=== PATIENT | male | born 1950 | race Caucasian/White ===

== ENCOUNTER 2018-02-08 20:30 | Outpatient (CLI) | payer MEDICARE | END 2018-02-08 20:31 | disposition home or self-care (01) | LOC: SLEEPLAB 20:30 | PROVIDERS: ATTEND Internal Medicine Critical Care Medicine | DX: G47.33 Obstructive sleep apnea (adult) (pediatric) (principal); E66.9 Obesity, unspecified; Z68.31 Body mass index [BMI] 31.0-31.9, adult | CPT/HCPCS: 95811 ==

== ENCOUNTER 2018-03-30 19:08 | Emergency (ER) | payer MEDICARE ==
[2018-03-30 20:00] LABS: #Basophils 0.1 thou/uL (0.0-0.2); #Eosinphils 0.4 thou/uL (0.0-0.7); #Lymphocytes 1.9 thou/uL (1.20-3.40); #Monocytes 0.8 thou/uL (0.11-0.59); #Neutrophils 4.2 thou/uL (1.40-6.50); %Basophils 0.9 % (0.0-1.0); %Monocytes 10.3 % (0.0-10.0); %Neutrophils 57.8 % (42.0-75.0); Hemoglobin 14.9 g/dL (14.0-18.0); Mean Corpuscular HGB CONC 36.1 g/dL (32.0-36.0); Mean Corpuscular Hemoglobin 32.4 pg (27.0-31.0); Mean Corpuscular Volume 89.6 fL (78.0-98.0); Platelet Count 150 thou/uL (130-400); RBC Distribution Width 10.8 % (11.5-14.5); Red Blood Cell (RBC) Count 4.61 mill/uL (4.70-6.10); White Blood Cell (WBC) Count 7.2 thou/uL (4.8-10.8)
[2018-03-30 20:07] LABS: Anion Gap 15 mmol/L (10-20); BUN (Urea Nitrogen) 20 mg/dL (8.4-25.7); Calc. Creatinine Clearance 0 mL/min (70-130); Calcium 9.7 mg/dL (7.8-10.44); Carbon Dioxide 24 mmol/L (23-31); Chloride 107 mmol/L (98-107); Estimated GFR-MDRD 56; Glucose 82 mg/dL (80-115); Potassium 4.5 mmol/L (3.5-5.1); Sodium 141 mmol/L (136-145)
[2018-03-30 20:10] LABS: CKMB 6.5 ng/mL (0-6.6); Troponin I Less than 0.010 ng/mL (< 0.028)
--- NOTE | 2018-03-30 20:19 | CT ---
CT OF THE BRAIN WITHOUT CONTRAST: 03/30/18 COMPARISON: None. HISTORY: Left sided facial swelling that began a few hours prior to arrival. Intermittent vertigo. TECHNIQUE: Multiple contiguous axial images were obtained in a CT of the brain without contrast. FINDINGS: The brain is normal in morphology and attenuation without focal lesions or confluent areas of infarct ion. There is no evidence of hydrocephalus, intracranial hemorrhage, or extra-axial fluid collections . The calvarium and overlying soft tissues are unremarkable. The visualized paranasal sinuses and masto id air cells are well aerated. IMPRESSION: No evidence of acute intracranial abnormality. POS: [facility]
--- NOTE | 2018-03-30 20:22 | CT ---
CT OF THE FACE WITHOUT CONTRAST: 03/30/18 COMPARISON: None. Jaw pain that began around lunch. Intermittent vertigo. Right sided facial swelling. TECHNIQUE: Multiple contiguous axial images were obtained in a CT of the face without contrast. Sagittal and cor onal reformats were performed. FINDINGS: A small mucous retention cyst is seen in the right maxillary sinus. The other paranasal sinuses are w ell aerated. The globes and retrobulbar soft tissues are unremarkable. Dental amalgam produces streak artifact sli ghtly limiting evaluation. No focal fluid collection is seen in the face. No definite perihardware wendi cency is seen surrounding any of the teeth. Temporomandibular joints are symmetric. No facial fractur e is seen. IMPRESSION: No significant facial abnormality. POS: [facility]
== END 2018-03-30 20:46 | disposition home or self-care (01) ==
LOC: SCSER 19:08
DX: R42 Dizziness and giddiness (principal); R22.0 Localized swelling, mass and lump, head; G47.33 Obstructive sleep apnea (adult) (pediatric); E78.5 Hyperlipidemia, unspecified; F32.9 Major depressive disorder, single episode, unspecified; G89.29 Other chronic pain; Z79.899 Other long term (current) drug therapy; Z79.82 Long term (current) use of aspirin
CPT/HCPCS: 70450; 70486; 80048; 82553; 84484; 85025; 93005

== ENCOUNTER 2019-01-23 09:26 | Outpatient (CLI) | payer MEDICARE | END 2019-01-23 09:27 | disposition home or self-care (01) | LOC: EKG 09:26 | PROVIDERS: ATTEND Family Medicine | DX: Z01.810 Encounter for preprocedural cardiovascular examination (principal) | CPT/HCPCS: 93005; 93010 ==

== ENCOUNTER 2019-02-13 00:08 | Outpatient (CLI) | payer MEDICARE ==
[2019-02-13 11:22] LABS: Hemoglobin 15.3 g/dL (14.0-18.0); Mean Corpuscular HGB CONC 34.2 g/dL (32.0-36.0); Mean Corpuscular Hemoglobin 33.5 pg (27.0-31.0); Mean Platelet Volume 8.2 fL (7.4-10.4); Platelet Count 170 thou/uL (130-400); RBC Distribution Width 12.2 % (11.5-14.5); Red Blood Cell (RBC) Count 4.57 mill/uL (4.70-6.10); White Blood Cell (WBC) Count 6.8 thou/uL (4.8-10.8)
[2019-02-13 11:32] LABS: Anion Gap 14 mmol/L (10-20); BUN (Urea Nitrogen) 19 mg/dL (8.4-25.7); Calc. Creatinine Clearance 0 mL/min (70-130); Carbon Dioxide 22 mmol/L (23-31); Chloride 108 mmol/L (98-107); Estimated GFR-MDRD 56; Glucose 107 mg/dL (80-115); Potassium 4.6 mmol/L (3.5-5.1); Sodium 139 mmol/L (136-145)
--- NOTE | 2019-02-13 11:34 | RAD ---
PA AND LATERAL VIEWS OF THE CHEST: HISTORY: Preoperative evaluation. FINDINGS: The heart size is normal. The aorta is tortuous. The lungs are well expanded without focal areas of consolidation, pneumothoraces, or pleural effusions. There are degenerative changes in the spine. IMPRESSION: No radiographic evidence of acute cardiopulmonary process. POS: [facility]
--- NOTE | 2019-02-15 13:46 | EKG ---
Test Reason : Blood Pressure : / mmHG Vent. Rate : 062 BPM Atrial Rate : 062 BPM P-R Int : 180 ms QRS Dur : 102 ms QT Int : 388 ms P-R-T Axes : 067 -88 057 degrees QTc Int : 393 ms Normal sinus rhythm Left axis deviation Incomplete right bundle branch block Inferior infarct , age undetermined Abnormal ECG When compared with ECG of 23-JAN-2019 09:48, (Unconfirmed) Inferior infarct is now Present QT has shortened Confirmed by DR. Andrew FLOREZ ([id number]) on 02/15/2019 1:46:14 PM Referred By: [facility] Confirmed By:DR. Andrew FLOREZ
== END 2019-02-13 00:09 | disposition home or self-care (01) ==
LOC: LABBT 00:08
PROVIDERS: ATTEND Podiatrist Foot & Ankle Surgery
DX: Z01.818 Encounter for other preprocedural examination (principal); M77.41 Metatarsalgia, right foot
CPT/HCPCS: 71046; 80048; 85027; 93005; 93010

== ENCOUNTER 2019-11-06 09:38 | Outpatient (CLI) | payer MEDICARE ==
--- NOTE | 2019-11-06 09:55 | RAD ---
Exam:Left shoulder 3 views HISTORY: Osteoarthritis COMPARISON: None FINDINGS: Minimal joint spaces preserved. No fracture or dislocation. There are degenerative changes in acromioclavicular joint space. Visualized left ribs are unremarkable. Atherosclerosis of the aorta. IMPRESSION: Degenerative changes acromioclavicular joint space.
== END 2019-11-06 09:39 | disposition home or self-care (01) ==
LOC: BICRAD 09:38
PROVIDERS: ATTEND Family Medicine
DX: M19.012 Primary osteoarthritis, left shoulder (principal)
CPT/HCPCS: 36415; 80053; 80061; 84550

== ENCOUNTER 2021-02-13 14:27 | Emergency (ER) | payer MEDICARE ==
[2021-02-13 15:18] LABS: #Basophils 0.1 thou/uL (0.0-0.2); #Eosinphils 0.2 thou/uL (0.0-0.7); #Lymphocytes 1.5 thou/uL (1.20-3.40); #Monocytes 0.9 thou/uL (0.11-0.59); #Neutrophils 8.5 thou/uL (1.40-6.50); %Basophils 0.6 % (0.0-1.0); %Eosinophils 1.9 % (0.0-10.0); %Lymphocytes 13.3 % (21.0-51.0); %Monocytes 7.8 % (0.0-10.0); %Neutrophils 76.4 % (42.0-75.0); Hemoglobin 15.6 g/dL (14.0-18.0); Mean Corpuscular HGB CONC 35.1 g/dL (32.0-36.0); Mean Corpuscular Hemoglobin 34.5 pg (27.0-31.0); Mean Corpuscular Volume 98.1 fL (78.0-98.0); Mean Platelet Volume 8.1 fL (7.4-10.4); Platelet Count 192 thou/uL (130-400); Red Blood Cell (RBC) Count 4.52 mill/uL (4.70-6.10); White Blood Cell (WBC) Count 11.2 thou/uL (4.8-10.8)
[2021-02-13 15:40] LABS: ALT (SGPT) 19 U/L (8-55); AST (SGOT) 18 U/L (5-34); Albumin 4.6 g/dL (3.4-4.8); Alkaline Phosphatase 66 U/L (40-110); Anion Gap 14 mmol/L (10-20); BUN (Urea Nitrogen) 19 mg/dL (8.4-25.7); Bilirubin, Total 0.5 mg/dL (0.2-1.2); Calc. Creatinine Clearance 0 mL/min (70-130); Carbon Dioxide 23 mmol/L (23-31); Chloride 104 mmol/L (98-107); Globulin 2.5 g/dL (2.4-3.5); Glucose 96 mg/dL (83-110); Lipase 13 U/L (8-78); Protein, Total 7.1 g/dL (5.8-8.1); Sodium 137 mmol/L (136-145)
== END 2021-02-13 16:15 | disposition home or self-care (01) ==
LOC: ERS 14:27
DX: R10.32 Left lower quadrant pain (principal); E78.5 Hyperlipidemia, unspecified; E78.00 Pure hypercholesterolemia, unspecified; Z87.891 Personal history of nicotine dependence; Z79.899 Other long term (current) drug therapy
CPT/HCPCS: 36415; 74176; 80053; 82274; 83690; 85025

== ENCOUNTER 2021-02-17 13:47 | Outpatient (CLI) | payer MEDICARE | END 2021-02-17 13:48 | disposition home or self-care (01) | LOC: BICRAD 13:47 | PROVIDERS: ATTEND Family Medicine | DX: R05 Cough (principal) | CPT/HCPCS: 71046 ==

== ENCOUNTER 2023-01-22 09:22 | Outpatient (CLI) | payer MEDICARE | END 2023-01-22 09:23 | disposition home or self-care (01) | LOC: BICRAD 09:22 | PROVIDERS: ATTEND Family Medicine | DX: R07.9 Chest pain, unspecified (principal) | CPT/HCPCS: 71046 ==

== ENCOUNTER 2024-08-06 12:05 | Outpatient (CLI) | payer MEDICARE | END 2024-08-06 12:06 | disposition home or self-care (01) | LOC: RAD 12:05 | PROVIDERS: ATTEND Internal Medicine Critical Care Medicine | DX: R06.00 Dyspnea, unspecified (principal); I70.0 Atherosclerosis of aorta; M19.011 Primary osteoarthritis, right shoulder; M47.814 Spondylosis without myelopathy or radiculopathy, thoracic region; R91.8 Other nonspecific abnormal finding of lung field | CPT/HCPCS: 71046 ==

== ENCOUNTER 2025-08-04 12:13 | Outpatient (CLI) | payer MEDICARE | END 2025-08-04 12:14 | disposition home or self-care (01) | LOC: RAD 12:13 | PROVIDERS: ATTEND Internal Medicine Critical Care Medicine | DX: R06.00 Dyspnea, unspecified (principal) | CPT/HCPCS: 71046 ==